=== PATIENT | female | born 1950 | race Caucasian/White ===

== ENCOUNTER 2024-12-17 04:52 | Day surgery (SDC) | payer OTHER ==
[2024-12-15 12:09] VITALS: BMI 20.1
[2024-12-17 12:32] VITALS: BP 101/59; PULSE 66; RESP 12; TEMP 97.6
== END 2024-12-17 10:12 | disposition home or self-care (01) ==
LOC: JASU-ENDO 04:52
PROVIDERS: ATTEND Internal Medicine Gastroenterology
PROC: 0DJD8ZZ Inspection of Lower Intestinal Tract, Via Natural or Artificial Opening Endoscopic (ICD-10-PCS; principal; 2024-12-17 08:30)
DX: Z86.0100 Personal history of colon polyps, unspecified (principal); R19.5 Other fecal abnormalities